=== PATIENT | male | born 1945 | race Caucasian/White ===

== ENCOUNTER 2018-09-06 12:45 | Inpatient (IN) ==
[2018-09-06 13:05] LABS: BASO# 0.04 X1000 (0.0-0.2); BASO% 0.5 % (0.0-0.8); EOS# 0.08 X1000 (0.0-0.7); EOS% 1.1 % (0.0-10.0); HEMATOCRIT 47.2 % (42.0-52.0); HEMOGLOBIN 16.9 g/dL (14.0-18.0); IMM GRAN# 0.02 X1000 (0.0-0.04); IMM GRAN% 0.3 % (0.0-0.5); MCH 31.7 PG (27-31); MCHC 35.8 g/dL (33-37); MCV 88.6 FL (81-99); MONO# 0.67 X1000 (0.11-0.59); MONO% 8.9 % (1.7-9.3); MPV 9.5 FL (7.4-10.4); NEUT# 3.99 X1000 (1.4-6.5); NEUT% 53.2 % (42.2-75.2); PLT 187 X1000 (130-400); RBC 5.33 XMIL (4.7-6.1); RDW 13.6 % (11.5-14.5)
--- NOTE | 2018-09-06 13:21 | Diag Imaging Result Doc PS360 ---
CHEST-PORTABLE - 09/06/2018 INDICATION: stroke like symptoms COMPARISON: 08/05/2018 FINDINGS: The lungs are normally expanded and clear. Heart size and mediastinal contours are normal. No pneumothorax or pleural effusion. Stable stent in one of the great vessels. IMPRESSION: Negative exam. Electronically signed by Tyrell Hyman 09/06/2018 1:19 PM
[2018-09-06 13:23] LABS: INR 0.94; PROTIME 13.3 Seconds (11.0-16.0)
[2018-09-06 13:24] LABS: ALB/GLOB RATIO 1.7; ALBUMIN 4.8 g/dL (3.5-5.0); CALCIUM 10.1 mg/dL (8.8-10.2); CREATININE 1.2 mg/dL (0.7-1.2); POTASSIUM 4.2 mmol/L (3.5-5.1); PTT 33.5 Seconds (22.3-41.8); TOTAL BILIRUBIN 0.56 mg/dL (0.20-1.00); TOTAL PROTEIN 7.6 g/dL (6.3-8.3)
--- NOTE | 2018-09-06 13:24 | Diag Imaging Result Doc PS360 ---
CT HEAD W/O CONTRAST - 09/06/2018 INDICATION: stroke like symptoms COMPARISON: 08/05/2018 FINDINGS: The ventricles and sulci are normal in size and contour. No intracranial mass or hemorrhage. The skull is intact. The sinuses mastoids and middle ears are clear. There are some surgical clips in the region of the right parotid gland. IMPRESSION: Negative exam. This exam was performed using automated exposure control, adjustment of mA or kV according to patient size, and/or use of iterative reconstruction technique Electronically signed by Tyrell Hyman 09/06/2018 1:21 PM
--- NOTE | 2018-09-06 13:34 | PROVIDER DOCUMENTATION ---
HPI-Neurological Disorder - General Chief Complaint: Stroke-Like Symptoms Stated Complaint: STROKE Time Seen by Provider: 09/06/18 12:59 Source: patient Allergies/Adverse Reactions: Patient Allergies Allergy/AdvReac Type Severity Reaction Status Date / Time Sulfa (Sulfonamide Allergy Severe ANAPHYLAXIS Verified 11/13/15 11:41 Antibiotics) hydrocodone Allergy ITCHING Verified 11/13/15 11:41 oxycodone Allergy ITCHING Verified 11/13/15 11:41 Home Medications: Home Medication List Medication Instructions Recorded Confirmed Last Taken Type Montelukast [Singulair] 10 mg PO DAILY 05/27/15 11/13/15 11/12/15 06:00 History 10 Acetaminophen E.r. [Tylenol 650 mg PO PRN PRN 11/11/15 11/13/15 11/12/15 20:00 History Arthritis] 650 Acetaminophen/Diphenhydramine 1 each PO PRN PRN 11/11/15 11/13/15 11/09/15 History [Tylenol Pm] 1 Cyclobenzaprine [Flexeril] 10 mg PO BID 11/11/15 11/13/15 11/12/15 21:00 History 10 Diazepam [Valium] 5 mg PO TID 11/11/15 11/13/15 11/12/15 06:00 History 5 Warfarin [Coumadin] 4 mg PO DIRECTED 11/11/15 11/13/15 11/05/15 History Warfarin [Coumadin] 5 mg PO DIRECTED 11/11/15 11/13/15 11/06/15 History Meperidine [Demerol] 50 mg PO Q4H PRN PRN #40 tablet 11/13/15 Unknown Rx Ondansetron HCl [Zofran] 4 mg PO Q6H PRN PRN #20 tablet 11/13/15 Unknown Rx Triamterene/Hctz [Maxzide-25] 1 each PO DAILY 11/13/15 11/13/15 11/12/15 06:00 History 1 Clopidogrel Bisulfate [Plavix] 75 mg PO DAILY #7 tab 08/05/18 Unknown Rx - History of Present Illness-Neuro Nature of Presenting Problem: Patient is a 72 yowm who complains of dizziness and lightheadedness since 1030 this morning. Family noticed a change in patient's speech 1.5 hours prior to arrival. He denies unilateral extremity weakness or numbness. Review of Systems - Adult - REVIEW OF SYSTEMS - ADULT Constitutional: reports: no symptoms reported Eyes: reports: no symptoms reported Ears, Nose, Mouth & Throat: reports: no symptoms reported Cardiovascular: reports: no symptoms reported Respiratory: reports: no symptoms reported Gastrointestinal: reports: no symptoms reported Genitourinary: reports: no symptoms reported Musculoskeletal: reports: no symptoms reported. denies: muscle aches, muscle we akness Integumentary: reports: no symptoms reported Neurological: reports: see HPI, dizziness/vertigo, other (stammering speech/lightheadedness). denies: headache/migraines, numbness, paresthesia, seizure, slurred speech, syncope, tremors Psychiatric: reports: no symptoms reported Endocrine: reports: no symptoms reported Hematologic/Lymphatic: reports: no symptoms reported Allergic/Immunologic: reports: no symptoms reported All Other Systems: Reviewed and Negative Past History - Adult - PAST MEDICAL HISTORY-ADULT Review of Records: reports: Old Records Reviewed, Nursing Assessment Review, Medications Reviewed, Social history reviewed & non-contributory. Major Childhood Illnesses: reports: denies history Cardiovascular: reports: cardiac disease, HTN, hyperlipidemia Gastrointestinal: reports: GERD Genitourinary: reports: denies history Musculoskeletal: reports: denies history Neurological: reports: TIA Endocrine/Immune: reports: denies history Other Conditions: reports: denies history - PRIOR SURGERIES/PROCEDURES Surgical/Procedure History: reports: recent surgery, cholecystectomy, hernia repair, other - IMMUNIZATION STATUS Childhood Immunizations: See Nurse Assessment Flu Vaccine: See Nurse Assessment Physical Exam- Neurological - Physical Exam-Neuro Initial Vital Signs Reviewed: Yes General Appearance: alert, no apparent distress. negative: lethargic, slow to respond Eye Exam: bilateral eye: normal inspection, PERRL (Pt unable to perform EOMs because he is unable to focus on an object too close to his face.) HENMT: normocephalic/atraumatic, moist mucous membranes, normal ENT inspection Head Injury: no evidence of injury Neck: non-tender, full range of motion, supple, normal inspection Respiratory: chest non-tender, lungs clear, normal breath sounds, no pleuratic chest pain, no respiratory distress, no accessory muscle use Cardiovascular: normal peripheral pulses, regular rate, rhythm, no edema, no gallop, no JVD, no murmur, other (No carotid bruit auscultated.). negative: diastolic murmur, systolic murmur Abdominal Exam: normal bowel sounds, non tender, soft, no organomegaly, no pulsatile mass Peripheral Pulses: radial (R): 3+, radial (L): 3+, dorsalis-pedis (R): 3+, dorsalis-pedis (L): 3+ Extremity: normal range of motion, normal inspection, no pedal edema, normal capillary refill. 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 No aphasia or dysphagia present.). negative: abnormal eye position, abnormal pupil position, facial asymmetry, facial droop, facial paresthesias, facial weakness Coordination/Gait: normal finger to nose Motor/Sensory: no motor deficit, no sensory deficit, no pronator drift. negative: pronator drift (L), sensory deficit, weak motor strength RUE, weak mo tor strength LUE, weak motor strength RLE, weak motor strength LLE Neurologic: seed corn manager production II-XII nml as tested, grossly normal, no motor/sensory deficits. negative: aphasia, facial droop, focal weakness, motor weakness, sensory def icit Integumentary: normal color, normal turgor, warm/dry. negative: cyanosis, diaphoresis, jaundice, mottled, pallor Psych/Mental Status: normal mood/affect, normal thought content, normal thought process, oriented x 3 - Glascow Coma Scale Best Eye Response: (4) open spontaneously Best Verbal Response: (5) oriented Best Motor Response: (6) obeys commands Progress - PLAN OF CARE/RESULTS Progress/Plan/Lab Results: Vital Signs - 8 hr 09/06/18 12:48 09/06/18 13:57 09/06/18 13:58 Temperature 97.8 F Pulse Rate 102 H 88 85 Respiratory Rate 20 16 25 H Blood Pressure 170/93 125/90 O2 Sat by Pulse Oximetry 95 97 97 09/06/18 14:10 09/06/18 14:20 Temperature Pulse Rate 95 H 83 Respiratory Rate 14 13 Blood Pressure O2 Sat by Pulse Oximetry 97 96 Laboratory Results - last 24 hr 09/06/18 09/06/18 09/06/18 12:57 12:57 12:57 WBC 7.50 RBC 5.33 Hgb 16.9 Hct 47.2 MCV 88.6 MCH 31.7 H MCHC 35.8 RDW Std Deviation 13.6 Plt Count 187 MPV 9.5 Immature Gran % (Auto) 0.3 Neut % (Auto) 53.2 Lymph % (Auto) 36.0 [place] % (Auto) 8.9 Eos % (Auto) 1.1 Baso % (Auto) 0.5 Immature Gran # (Auto) 0.02 Neut # (Auto) 3.99 Lymph # (Auto) 2.70 [place] # (Auto) 0.67 H Eos # (Auto) 0.08 Baso # (Auto) 0.04 PT 13.3 INR 0.94 PTT (Actin FS) 33.5 Sodium 138 Potassium 4.2 Chloride 100 Carbon Dioxide 24 L Anion Gap 14 BUN 12 Creatinine 1.2 Estimated GFR/1.73 m2 60 BUN/Creatinine Ratio 10 Glucose 128 H POC Glucose Calculated Osmolality 277 Calcium 10.1 Total Bilirubin 0.56 AST 16 ALT 7 L Alkaline Phosphatase 114 Troponin T Total Protein 7.6 Albumin 4.8 Globulin 2.8 Albumin/Globulin Ratio 1.7 Urine Source Urine Color Urine Turbidity Urine pH Ur Specific [place] Urine Protein Ur Glucose (Stick) Ur Ketones (Stick) Urine Blood Urine Nitrite Urine Bilirubin Urobilinogen Dipstick Urine Leukocytes Urine WBC (Auto) Urine RBC (Auto) U Epithel Cells (Auto) Urine Bacteria (Auto) 09/06/18 09/06/18 09/06/18 12:57 13:47 13:49 WBC RBC Hgb Hct MCV MCH MCHC RDW Std Deviation Plt Count MPV Immature Gran % (Auto) Neut % (Auto) Lymph % (Auto) [place] % (Auto) Eos % (Auto) Baso % (Auto) Immature Gran # (Auto) Neut # (Auto) Lymph # (Auto) [place] # (Auto) Eos # (Auto) Baso # (Auto) PT INR PTT (Actin FS) Sodium Potassium Chloride Carbon Dioxide Anion Gap BUN Creatinine Estimated GFR/1.73 m2 BUN/Creatinine Ratio Glucose POC Glucose 98 Calculated Osmolality Calcium Total Bilirubin AST ALT Alkaline Phosphatase Troponin T < 0.010 Total Protein Albumin Globulin Albumin/Globulin Ratio Urine Source CLEAN CATCH Urine Color STRAW Urine Turbidity CLEAR Urine pH 7.0 Ur Specific [place] 1.000 Urine Protein NEGATIVE Ur Glucose (Stick) NEGATIVE Ur Ketones (Stick) NEGATIVE Urine Blood NEGATIVE Urine Nitrite NEGATIVE Urine Bilirubin NEGATIVE Urobilinogen Dipstick NORMAL Urine Leukocytes NEGATIVE Urine WBC (Auto) <10 Urine RBC (Auto) <10 U Epithel Cells (Auto) <10 Urine Bacteria (Auto) NEGATIVE Orders Category Date Time Status Cardiac Monitoring DIRECTED Care 09/06/18 12:55 Active Finger Stick Blood Sugar (ED) DIRECTED Care 09/06/18 12:55 Active Misc. NRSG Communication Order DIRECTED Care 09/06/18 12:55 Active Oxygen Therapy- ED Nursing DIRECTED Care 09/06/18 12:55 Active Saline Loc NOW Care 09/06/18 12:55 Active CHEST-PORTABLE [RAD] Stat Exams 09/06/18 12:[address] HEAD W/O CONTRAST [CT] Stat Exams 09/06/18 12:55 Completed CBC WITH ELECTRONIC DIFF [HEME] Stat Lab 09/06/18 12:58 Ordered COMPREHENSIVE METABOLIC PANEL [CHEM] Stat Lab 09/06/18 12:58 Ordered PROTIME WITH INR [COAG] Stat Lab 09/06/18 12:58 Ordered PTT [COAG] Stat Lab 09/06/18 12:58 Ordered TROPONIN T Stat Lab 09/06/18 12:58 Ordered URINALYSIS W/POSS RFLX CULT [URINALYSIS] Stat Lab 09/06/18 13:48 Ordered 0.9% Sodium Chloride Inj [Ns] 1,000 ml Med 09/06/18 14:50 Active IV 125 mls/hr Aspirin Med 09/06/18 14:23 Discontinued 325 mg PO NOW ONE EKG [EKG] Stat Ther 09/06/18 12:55 Draft Transfer/Admit Order [TRANSFER] Routine Transfer 09/06/18 14:58 Ordered 1335- Dr. dobson at bedside to evaluate pt. requests stroke team consult at [place]. Spoke with transfer center electronics parts sales representative who states neurology will call back. Spoke with neurologist Dr. campbell with [facility] who requests that head CT be pushed to them and that telemedicine be set up so he can evaluate pt. Charge nurse aware. Dr. Campbell does not recommend TPA. Does however recommend inpatient admission for TIA. Result Diagrams: 09/06/18 12:57 09/06/18 12:57 - XRAY 1 XRAY Study: Chest (IMPRESSION: Negative exam. Electronically signed by Tyrell Hyman 09/06/2018 1:19 PM) - CT/MRI 1 CT Study: Head (IMPRESSION: Negative exam. This exam was performed using automated exposure control, adjustment of mA or kV according to patient size, and/or use of iterative reconstruction technique Electronically signed by Tyrell Hyman 09/06/2018 1:21 PM) - CONSULTS/PCP/HOSPITALIST Notification #1 *Consult/PCP/Hospitalist*: DARIELA Correa CRIMINAL ANALYST Consult Disposition: Admit (States admission will go to Dr. Miller.) Departure - Departure Date of Disposition Decision: 09/06/18 Time of Disposition Decision: 14:49 DIAGNOSIS: TIA (transient ischemic attack) Disposition: ADMITTED INPATIENT 09 Certified Medical Emergency: Emergent Condition: Stable Referrals and Follow-Ups: None,PCP [Primary Care Provider] - - Critical Care Note This patient required my direct & personal management of CC.: No Attestation - Physician/ MARÍA ELENA Attestation Patient care was provided by Advanced Practice Provider:: Yes Advanced Practice Provider:: Elisa Feliz Advanced Practice Provider documentation review:: The Mid-level provider documentation, treatment plan and medical decision making was reviewed by the physician who agrees with all treatment and medical decision making by the MLP. The physician spent face to face time with patient:: Yes (Dr. Dobson) Advanced Practice Provider documentation review:: Supervising physician onsite and consulted in the evaluation and care of this patient. The physician did have a face to face encounter with the patient. - NIH Stroke Scale Level of Consciousness: 0-Alert LOC Questions (ask month and age): 0-Answers Both Correctly Best Gaze (horizontal eye movement): 2-Forced Deviation Visual (use finger movement, counting or visual threat): 0-No Visual Loss Facial Palsy (show teeth or raise eyebrows & close eyes tght: 0-Symmetrical Movement Motor Function-left arm: 0-Normal Motor Function-right arm: 0-Normal Motor Function-left le-Normal Motor Function-right le-Normal Limb Ataxia(byzlkl-hjqe-gzkaiy, or heel to eng): 0-No Ataxia Sensory(pin prick to face,arms,trunk,legs-compare side/side): 0-No Ataxia Best Language(name item/read sentence.Ex-Down to Earth): 1-Mild to Moderate Aphasia Dysarthria(Pt read words or say words Ex.Mama,Tip-Top,Thanks: 0-Normal Articulation Extinction and Inattention: 0-Normal NIH Total Score: 3 Modified Buchanan Score Criteria: 1-no significant disability despite symptoms Stroke tPA Guidelines - Inclusion Criteria for IV tPA 18 years old or older: Yes Ischemic stroke with measurable deficit: No Onset <3 hours ago *OR* 3-4.5 hours ago: Yes - Exclusion Criteria for IV tPA Evidence of intracranial hemorrhage on CT: No Presentation suggest SAH: No CT reveals defined area of hypodensity: No Evidence of AVM, neoplasm, aneurysm: No Seizure at stroke onset: No Active internal bleeding or acute trauma: No Platelet Count Less Than 100,000: No Heparin Within Last 48 HRS (PTT >Lab normal limits): No INR > 1.7 (warfarin use): No Use IIB/IIIA inhibitors within 24 hours: No Serious Head Trauma Within Last 3 Months: No Arterial Puncture Within Last 7 Days: No Lumbar Puncture Within Last 7 Days: No Repeated systolic Blood Pressure >185 or Diastolic >110: No - Additional Exclusion Criteria for IV tPA Currently on Coumadin: No Patient older than 80: No Prior stroke and diabetes: No Baseline NIHSS score > 25: No - Relative Contraindications to IV tPA CT reveals extensive area of infarct (>1/3 MCA territory): No Minor or rapidly improving stroke symptoms: No Major Surgery or Serious Trauma In Previous 14 Days: No AMI within 3 months: No Gastrointestinal or Urinary Tract hemorrhage in Past 21 Days: No Post - AMI pericarditis: No Blood Glucose Less Than 50 mg/dl or Greater Than 400 mg/dl: No - Consultation tPA risks/benefits explained to:: patient Candidate for:: NOT A CANDIDATE Reason not a candidate:: neurology specialist does not recommend
[2018-09-06 13:57] LABS: URINE SOURCE CLEAN CATCH
[2018-09-06 13:59] LABS: BILIRUBIN URINE NEGATIVE (NEGATIVE); BLOOD URINE NEGATIVE (NEGATIVE); COLOR STRAW; GLUCOSE URINE NEGATIVE (NEGATIVE); KETONE URINE NEGATIVE (NEGATIVE); LEUKOCYTES URINE NEGATIVE (NEGATIVE); NITRITE URINE NEGATIVE (NEGATIVE); PROTEIN URINE NEGATIVE (NEGATIVE); TURBIDITY URINE CLEAR (CLEAR); UR EPITHELIAL CELLS <10 /HPF (<10); URINE BACTERIA NEGATIVE /HPF; URINE RBC <10 /HPF (<10); URINE WBC <10 /HPF (<10); UROBILINOGEN URINE NORMAL (NORMAL)
[2018-09-06] MEDS ORDERED: ASPIRIN PO ONE (14:23)
[2018-09-06] MEDS ORDERED: NS 1,000 ML IV ONE (14:50)
--- NOTE | 2018-09-06 14:52 | EKG Report ---
Test Performed on : 09/06/2018 1:16:48 PM Test Reason : Stroke like symptoms Blood Pressure : / mmHG Vent. Rate : 091 BPM Atrial Rate : 091 BPM P-R Int : 158 ms QRS Dur : 076 ms QT Int : 354 ms P-R-T Axes : 024 004 022 degrees QTc Int : 435 ms Normal sinus rhythm. Normal ECG No previous ECGs available Unconfirmed Result
[2018-09-06] MEDS ORDERED: ZOFRAN IV PRN (16:10)
[2018-09-06] MEDS ORDERED: TYLENOL PO PRN (16:10)
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
[2018-09-06] MEDS: LOVENOX SUBQ SCH (20:45)
[2018-09-06] MEDS ORDERED: LIPITOR PO SCH (21:00)
[2018-09-07 07:46] LABS: BASO# 0.03 X1000 (0.0-0.2); BASO% 0.4 % (0.0-0.8); EOS# 0.13 X1000 (0.0-0.7); EOS% 1.8 % (0.0-10.0); HEMATOCRIT 48.5 % (42.0-52.0); LYMPH# 2.74 X1000 (1.2-3.4); MCH 31.2 PG (27-31); MCHC 35.1 g/dL (33-37); MONO% 9.5 % (1.7-9.3); MPV 10.2 FL (7.4-10.4); NEUT% 51.3 % (42.2-75.2); PLT 191 X1000 (130-400); RBC 5.45 XMIL (4.7-6.1); RDW 13.6 % (11.5-14.5)
[2018-09-07 07:58] LABS: AGAP 11; ALB/GLOB RATIO 1.3; ALBUMIN 4.5 g/dL (3.5-5.0); ALKALINE PHOSPHATASE 109 U/L (32-122); BUN 12 mg/dL (8-22); CALCIUM 9.9 mg/dL (8.8-10.2); CHLORIDE 106 mmol/L (98-107); COSMO 283; ESTIMATED GFR > 60; GLUCOSE 127 mg/dL (70-104); GOT 15 U/L (10-34); GPT 7 U/L (10-44); POTASSIUM 4.5 mmol/L (3.5-5.1); SODIUM 141 mmol/L (136-145); TCO2 24 mmol/L (25-35); TOTAL BILIRUBIN 0.72 mg/dL (0.20-1.00)
[2018-09-07] MEDS ORDERED: ASPIRIN PO SCH (09:00)
[2018-09-07] MEDS ORDERED: PLAVIX PO SCH (09:00)
[2018-09-07] MEDS: VALIUM PO SCH ×3 (11:36→18:02)
--- NOTE | 2018-09-07 15:37 | PROGRESS NOTE ---
DATE: 09/07/2018 SUBJECTIVE: This patient is sitting at the bedside. He is is not complaining of chest pain or shortness of breath or any other episodes of confusion or twitching. Neurology Department will evaluate this patient. Case has been discussed already with Dr. Serrano and likely this patient will have an EEG done and hopefully we can have a baseline EEG during this hospitalization, MRI of the head done outside the hospital yesterday did not show any abnormality, as well as the MRI of the head and neck. He does have some problems in the lumbar spine. MRI done yesterday, but he will follow that up with his primary and spine doctor. OBJECTIVE: Vital Signs: Temperature 97.9, pulse 81, respiratory rate 22, blood pressure 150/79. Oxygen saturation 99% on room air. HEENT: Head normocephalic, no trauma. PERRLA. Neck: Supple. No JVD. No masses. Central trachea. Chest: Clear to auscultation. No wheezing, no rales. He does have a surgical scar at the level of the left upper thoracic area. Abdomen: Soft, nontender, nondistended. No hepatosplenomegaly. Extremities: No edema, no clubbing, no cyanosis. Neurologic: The patient is alert. He is oriented x 3. No focal neurological deficits. LABORATORY: WBC 7.4, hemoglobin 17, hematocrit 48.5, platelets 191,000. Sodium 141, potassium 4.5, chloride 106, bicarbonate 24, BUN 12, creatinine 1, glucose 127, calcium 9.9. AST 15, ALT 7, alkaline phosphatase 109. Triglyceride 165, cholesterol 233, LDL 212. ASSESSMENT AND PLAN: 1. Possible seizure disorder versus TIA. I do not think this is related to a TIA. It is not the classic presentation. We are getting an EEG for this patient. As per the patient, he has been having multiple TIAs since 2015 and he has been getting aspirin and also Plavix. He did follow up with Dr. Ferrell on the of last month who wanted him to continue with Plavix and aspirin. He has been ordered an MRI and MRA of the head and neck that was done yesterday, but did not show any acute problem, mass or infarct. Neurology Department on board. We will follow recommendations. Probably this patient will go home tomorrow. 2. Hyperlipidemia, continue with statins. The triglyceride and cholesterol are still elevated. 3. Recent incision and drainage of to a sebaceous cyst on his bottom that still continues to drain a little bit. Continue with wound care. cc: Kurtis Baez MD
[2018-09-07 15:44] VITALS: BP 155/84
[2018-09-07] MEDS: LOVENOX SUBQ SCH (18:02)
--- NOTE | 2018-09-08 01:03 | CONSULTATION ---
DATE OF CONSULTATION: 09/07/2018 REASON FOR CONSULT: Question TIA. HISTORY OF PRESENT ILLNESS: This is a 72-year-old, right-handed male who was admitted yesterday with concern of TIA. History is from the patient and attentive . Patient follows with Dr. Ferrell, neurologist in [place]. He states that he is eager for discharge. He was initially up walking around the halls and at the nurses station when I came to find him for consultation. They report that he has had recurrent similar symptoms since 2013. He gets lightheaded and dizzy as well as a little bit foggy and somewhat slowed his thinking. He seems to stammer or stutter his words, possibly mumbling. He says he knows what he wants to say but cannot seem to get the words out. He seems to be in a fog, somewhat blankly staring, but is able to interact some times during these events. He feels as though he might pass out at times. He has a warning which he describes as a "thick" headache or thick feeling in his head about 2 hours before the onset of the other symptoms. If he takes an aspirin he usually does not progress to the remaining symptoms, however, sometimes he does. Those symptoms last approximately 1 hour before resolution. He tends to sit or lie down and rest during these events. At times, he has felt some difficulty with walking during these events, and seems to stumble in no particular direction. He does not have definite focal weakness or sensory loss. He does not have other focal symptoms. No chest pain or shortness of breath. does not believe he loses consciousness. Again, 1st event was in 2013 and he had intermittent events since that time, but in the last couple of months he has had more frequent events. He had 1 on the day of admission, and apparently had another event today during the EEG. He states he began to feel the symptoms come on when the mobile lab technician was manipulating close to the neck on the right side and the back. The symptoms worsened and he felt the dizziness and lightheadedness during photic stimulation. When he came back to the floor, he was standing in the hallway and nurse reported he suddenly began to stagger and had somewhat of a glossed look on his face. Another mobile lab technician said that she could not understand his mumbling. The episode was brief, less than a minute. The patient recalls this event. Dr. Ferrell sent him very recently, in the last several days, for an MRI and MRA of the head as well as carotid Doppler's. We have reports of those studies that were unremarkable. A physician here just started the patient on Plavix, in addition to his aspirin. 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 FAMILY HISTORY: No strokes. Positive coronary disease. SOCIAL HISTORY: He is and lives just down the street with his . He is retired. No tobacco, alcohol, or illicit's. ALLERGIES: Reviewed in the chart. CURRENT MEDICATIONS: Reviewed in the chart, include aspirin 81 mg, Plavix 75 mg, Lipitor 40 mg. He takes diazepam for ear problem. REVIEW OF SYSTEMS: Balance of 12 was conducted and is otherwise negative, except that detailed in the HPI. PHYSICAL EXAMINATION: Vital Signs: Afebrile. Blood pressure 155/84, pulse 80s to low 100s, respirations 16, 99% on room air. Neurologic: Mr. Dhaliwal was initially walking around the [place] at the nurse's station. He is dressed in regular clothes and quite eager for discharge. He is awake, alert, oriented. Speech is fluent. No dysarthria. No language dysfunction. Follows simple and complex commands. Left right and digit distinction preserved. Discusses recent and remote events. His pupils are equal, round, reactive to bright light. Gaze conjugate. Extraocular movements full. Visual stewart intact to direct confrontational testing. He can hear. Face symmetric with equal activation. Facial sensation reported intact. Tongue is midline. Palate elevates symmetrically. Some diminished shoulder shrug on the left, chronic. Tone is equal in the limbs. I can easily overcome the left deltoid, which is chronic for him since his surgery. Otherwise, he is quite strong with good power that is symmetric in the arms and legs. He reports intact sensation in the arms and legs that is symmetric. [id number] and rapid alternating movements are preserved. Reflexes are 1+ of the wrists and knees bilaterally. No clonus. Gait, he has a normal casual gait, unassisted with good turn. No complaints of dizziness at my time at the bedside. DIAGNOSTICS: Labs reviewed in the chart. Normal sodium, BUN, creatinine. Triglycerides 165, LDL 212, HDL 41. He had an MRI of the brain, noncontrast and MRA of the head days ago as an outpatient. Those reports are here and are unremarkable. He also had carotid Doppler's. EEG routine was personally reviewed, normal. No epileptiform discharges. ASSESSMENT AND PLAN: Transient episodes of dizziness, lightheadedness, mental fog, and stammering speech plus/minus unsteady gait with duration roughly 1 hour or so. He has been having these since 2013, more frequently in recent months. Workup thus far has been unrevealing. Etiology is uncertain. I would consider MRA of the neck if that has not been done. EEG was normal and did not show increased propensity to seizure. He reports having some of his symptoms during the time of the EEG, and there was no epileptiform correlate. Though I am not certain all of his symptoms were captured. He has a history of subclavian stent and reports that has been evaluated and doing well. I wonder if it needs to be looked into further. For now, I would agree with low-dose aspirin and Plavix for a total of 30 days, followed by monotherapy with aspirin. Agree with statin therapy. It might be reasonable to do an ambulatory EEG as an outpatient in the future, and he can follow up with his neurologist, Dr. Ferrell,for that and for his symptoms. The patient was quite eager for discharge and was threatening. I encouraged him to follow up with Dr. Ferrell upon discharge and for further evaluation of his symptoms. Thank you for the consultation. cc: Eileen Serrano MD [facility]PITALStacia
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
--- NOTE | 2018-09-08 09:05 | EEG REPORT ---
DATE: 09/07/2018 EEG REPORT: REFERRING: DR. Eileen Serrano. CHIEF WRITER: Tyrese Clark. BACKGROUND INFORMATION / TECHNIQUE: This is a digitally recorded routine EEG with video history. A 72-year-old male patient with question of seizure. EEG is ordered to detect evidence of seizures. MEDICATIONS: Include diazepam. EEG FINDINGS: A moderately well-formed 9 Hz posterior dominant alpha rhythm is seen symmetrically in the occipital regions and attenuates with eye opening. The anterior background consists of mixed alpha and beta range frequencies. No definite persistent focal slowing. No epileptiform discharges. No seizures. Hyperventilation is not performed. Photic stimulation induces a normal driving response. No definite drowsiness patterns. Stage II sleep is not seen. EKG demonstrates regular RR intervals. There is a period of time when the patient reports left hand tingling during the recording. There is no epileptiform EEG correlate. IMPRESSION AND CLINICAL CORRELATION: Normal routine EEG in the awake state. There is a period of time that the patient reports left hand tingling during the event and there is no epileptiform EEG correlate. cc: Eileen Serrano MD
== END 2018-09-07 18:51 | disposition home or self-care (01) | DRG 884 ==
LOC: ED 12:45 → EDIPHOLD 15:28 → 3N 19:53
PROVIDERS: ATTEND Internal Medicine
CPT/HCPCS: 70450; 71010; 71045; 80053; 80061; 81001; 82948; 83721; 84484; 85025; 85610; 85730; 92523; 93005; 93306; 93880; 95816; 99285; A9270; J1650; J7030; XXXXX